=== PATIENT | female | born 1990 | race Caucasian/White ===

== ENCOUNTER 2019-03-19 18:56 | Emergency (ER) | payer OTHER ==
[~2019-03-19] VITALS: Ht 149.9 cm; Wt 54.4 kg
[~2019-03-19 18:56] MED LIST: ACETAMINOPHEN-1 EAC1 PO; AMBEREN PO; APAP500; AZITHROMYCIN 2250 MG PO; BACTRIM DS TAB1 EACH PO; CELEXA20 MG; CENTRUM SILVER1 EAC2 PO; CILOXAN5 ML OPHTHALMIC; CIPROFLOXACIN500 M1 PO; CLEOCIN HCL150 MG PO; CLONAZEPAM PO; DERMOPLAST SPRA56 ML; DOXYCYCLINE 10100 M1 PO; DOXYCYCLINE 10100 MG PO; FLAGYL500 MG PO; HYDROCORTISONE30 G9 RE; IBUPROFEN 400400 M2 PO; IBUPROFEN 600600 M1; IBUPROFEN 600600 M1 PO; IRON; LANOLIN56 GM; MACROBID 100 M100 M1 PO; MULTIVITAMINS1 EAC7; NAPROSYN500 MG PO; NEURONTIN 300M300 M2; NITROFURANTOIN100 MG PO; NOHOMEMEDICATIONS; NORCO 5-325 TA1 EACH; NORCO 5-325 TA1 EACH PO; PHENERGAN 25 MG25 M1 PO; PREDNISONE 20 M20 M1 PO; PRENATAL; PRENATAL TABLE1 EAC3 PO; PROAIR HFA8.5 GM IH; PROMETHAZINE-C120 ML PO; PROVENTIL HFA6.7 G1 INH; SULFACETAMIDE 115 M1 OP; TRAMADOL 50 MG50 MG PO; TRINATE TABLET1 TAB PO; TUCKS MEDICATE1 EAC1; TUCKS1 EAC1; TUMS; TUMS PO; ULTRAM 50MG TAB50 MG PO; VENTOLIN HFA INH8 GM IH; ZITHROMAX1 GM; ZOFRAN4 MG PO; ZPAK PO
[2019-03-19] MEDS ORDERED: CLEOCIN HCL150 MG PO (19:50)
[2019-03-19] MEDS ORDERED: NORCO 5-325 TA1 EAC1 PO (19:50)
[2019-03-19 20:11] VITALS: BP 123/81
== END 2019-03-19 20:12 | disposition home or self-care (01) ==
LOC: ER 18:56
DX: K08.89 Other specified disorders of teeth and supporting structures (principal); R51 Headache; J45.909 Unspecified asthma, uncomplicated; F17.210 Nicotine dependence, cigarettes, uncomplicated; Z88.1 Allergy status to other antibiotic agents; Z88.0 Allergy status to penicillin

== ENCOUNTER 2019-04-06 18:59 | Emergency (ER) | payer OTHER ==
[~2019-04-06] VITALS: Ht 149.9 cm; Wt 54.4 kg
[~2019-04-06 18:59] MED LIST changes: +NORCO 5-325 TA1 EAC1 PO
[2019-04-06] MEDS ORDERED: IRON325 M1 PO (19:20)
[2019-04-06] MEDS ORDERED: [UNRECOGNIZED DRUG - OTHER] PO (19:21)
[2019-04-06 20:26] VITALS: BP 109/62
--- NOTE | 2019-04-07 15:01 | EKG ---
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
== END 2019-04-06 20:27 | disposition home or self-care (01) ==
LOC: ER 18:59
DX: F31.9 Bipolar disorder, unspecified (principal); R07.89 Other chest pain; R05 Cough; J45.909 Unspecified asthma, uncomplicated; F17.210 Nicotine dependence, cigarettes, uncomplicated; Z88.1 Allergy status to other antibiotic agents; Z88.0 Allergy status to penicillin

== ENCOUNTER 2019-09-26 04:11 | Emergency (ER) | payer OTHER ==
[~2019-09-26] VITALS: Ht 149.9 cm; Wt 54.4 kg
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
[~2019-09-26 04:11] MED LIST changes: +IRON325 M1 PO; +[UNRECOGNIZED DRUG - OTHER] PO
[2019-09-26] MEDS ORDERED: CELEXA 10 MG TA10 M1 PO (04:19)
[2019-09-26] MEDS ORDERED: RISPERDAL 1 MG T1 MG PO (04:19)
[2019-09-26] MEDS ORDERED: BACTRIM DS TAB1 EACH PO (04:24)
[2019-09-26] MEDS ORDERED: WELLBUTRIN 75 M75 M1 PO (04:25)
[2019-09-26 04:58] LABS: URINE BILIRUBIN NEGATIVE (Negative); URINE BLOOD NEGATIVE (Negative); URINE CLARITY CLEAR; URINE COLOR YELLOW; URINE GLUCOSE-RANDOM* NEGATIVE (Negative); URINE KETONES NEGATIVE (Negative); URINE LEUKOCYTES-REFLEX TRACE (Negative); URINE NITRITE-REFLEX NEGATIVE (Negative); URINE PROTEIN (DIPSTICK) NEGATIVE (Negative); URINE UROBILINOGEN 0.2 E.U./dl (0.2-1.0)
[2019-09-26 04:59] LABS: CALCIUM 9.5 mg/dL (8.5-10.1); CREATININE 0.7 mg/dL (0.6-1.0); POTASSIUM 3.5 mmol/L (3.5-5.1)
[2019-09-26 05:06] LABS: ALBUMIN 3.2 g/dL (3.4-5.0); TOTAL BILIRUBIN 0.4 mg/dL (0.2-1.0); TOTAL PROTEIN 7.7 g/dL (6.4-8.2)
[2019-09-26 05:14] LABS: ABSOLUTE NEUTROPHILS 13.4 thou/uL (1.4-8.2); BASOPHILS 0.9 % (0.0-2.0); EOSINOPHILS 0.9 % (0.0-3.0); HEMATOCRIT 30.9 % (37.0-47.0); HEMOGLOBIN 10.5 gm/dL (12.0-15.0); LYMPHOCYTES 9.8 % (24.0-44.0); MCH 31.1 pg (26.0-34.0); MCV 91.6 fL (80.0-100.0); PLATELET COUNT 660 thou/uL (150-400); POLYS 82.4 % (36.0-66.0); RBC 3.37 mil/uL (4.20-5.00); RDW 12.7 % (10.5-14.5); WBC 16.3 thou/uL (4.0-11.0)
[2019-09-26] MEDS ORDERED: ZOFRAN ODT4 MG PO (05:39)
[2019-09-26 05:59] VITALS: BP 123/104
== END 2019-09-26 06:06 | disposition home or self-care (01) ==
LOC: ER 04:11
PROVIDERS: Emergency Medicine
DX: R11.2 Nausea with vomiting, unspecified (principal); R42 Dizziness and giddiness; R07.81 Pleurodynia; J45.909 Unspecified asthma, uncomplicated; Z48.00 Encounter for change or removal of nonsurgical wound dressing; F17.210 Nicotine dependence, cigarettes, uncomplicated; Z79.899 Other long term (current) drug therapy; Z88.1 Allergy status to other antibiotic agents; Z88.0 Allergy status to penicillin